=== PATIENT | male | born 1995 | race Caucasian/White ===

== ENCOUNTER 2018-12-11 06:06 | Day surgery (SDC) | payer OTHER ==
[2018-12-10 14:16] VITALS: BMI 23.6
[2018-12-11] MEDS ORDERED: SODIUM CHLORIDE 0.9% P/F 10 ML VIAL IJ ONE (07:09)
[2018-12-11] MEDS ORDERED: BUPIVACAINE LIPOSOME/PF (EXPAREL) 266 MG/20 ML VIAL ONE (07:09)
[2018-12-11] MEDS ORDERED: MIDAZOLAM HCL 2 MG/2 ML SINGLE DOSE VIAL ONE (07:09)
[2018-12-11] MEDS ORDERED: BACITRACIN 15 GM TUBE TOPICAL OINTMENT ONE (07:12)
[2018-12-11] MEDS ORDERED: EPINEPHrine 1:1,000 1 MG/1 ML - 30ML VIAL (INJECTION) ONE (07:12)
--- NOTE | 2018-12-11 07:25 | OP ---
Operative Note - Note: Operative Date: 12/11/18 Pre-Operative Diagnosis: Left ACL tear Operation: Left ACL reconstruction Post-Operative Diagnosis: Same as Pre-op Surgeon: Anmol Denson [employer]acking House Laborer: Trisha Snyder Anesthesia: General Operative Report Dictated: Yes
[2018-12-11] MEDS ORDERED: PROPOFOL 20 ML ONE ×4 (07:31)
[2018-12-11] MEDS ORDERED: LIDOCAINE HCL/PF 2% SDV 5ML VIAL ONE ×2 (07:31→08:09)
[2018-12-11] MEDS ORDERED: SUCCINYLCHOLINE CHLORIDE 200 MG/10 ML VIAL ONE (07:32)
[2018-12-11] MEDS ORDERED: ceFAZolin SODIUM 1 GM VIAL ONE (08:09)
[2018-12-11] MEDS ORDERED: ePHEDrine SULFATE 50 MG/1 ML AMPULE ONE (08:12)
[2018-12-11] MEDS ORDERED: DESFLURANE GAS 240 ML BOTTLE IH ONE (08:38)
[2018-12-11] MEDS ORDERED: ONDANSETRON 4 MG/2 ML VIAL IVPUSH PRN (08:46)
[2018-12-11] MEDS ORDERED: oxyCODONE HCL 5 MG TABLET PO PRN ×2 (08:46)
[2018-12-11] MEDS ORDERED: TRANEXAMIC ACID 1000 MG/10 ML VIAL ONE (08:51)
[2018-12-11] MEDS ORDERED: LACTATED RINGERS SOLUTION 1,000 ML IV SCH (09:00)
[2018-12-11] MEDS ORDERED: DEXAMETHASONE SOD PHOSPHATE 4 MG/1 ML VIAL ONE (09:28)
[2018-12-11 12:01] VITALS: TEMP 98.8
--- NOTE | 2018-12-11 13:15 | OP ---
DATE OF OPERATION: 12/11/2018 PREOPERATIVE DIAGNOSIS: Left knee anterior cruciate ligament rupture. POSTOPERATIVE DIAGNOSIS: Left knee anterior cruciate ligament rupture. PROCEDURE: Left knee arthroscopy with anterior cruciate ligament reconstruction, patellar tendon autograft. SURGEON: Anmol Denson MD HOBBING MACHINE OPERATOR: SLADE Razo, whose skillful assistance was necessary for the safe and timely performance of this procedure. Mrs. Davidson was able to provide limb positioning, retraction, assist in graft harvest and preparation, driving the camera, as well as insertion of orthopedic hardware and graft fixation. ANESTHESIA: Regional plus general. POSTOPERATIVE CONDITION: Stable. COMPLICATIONS: None. IMPLANTS: Arthrex TightRope x1, Arthrex 30 x 8 mm BioComposite Interference screw x1, Arthrex SwiveLock x1. INDICATIONS: This is a 23-year-old gentleman who injured his knee in a twisting injury. He was found to have ACL rupture. Treatment options including nonoperative versus operative measures were reviewed. Graft options were reviewed, and the patient elected patellar tendon autograft reconstruction. Surgical risks were reviewed in detail, including bleeding, infection, neurovascular injury, need for further surgery, postoperative pain and stiffness, failure to heal or persistent instability, graft rupture. We discussed medical risks such as heart attack, stroke, DVT, PE, and . I reviewed at length the rehabilitation protocol and that while the knee generally is better from the surgery, it will never be 100% the same as it was before. I addressed all the patient's questions and concerns. We reviewed the use of perioperative antibiotic and DVT prophylaxis. The patient and his father were both present for consent, consent was signed, he voiced understanding and proceeded with surgery. DESCRIPTION OF PROCEDURE: The patient was brought to the operating room after administration of regional block in the preoperative holding area. The patient was placed onto the operating room table, carefully padding all the bony prominences. The left lower extremity was examined and demonstrated positive Gibson, positive pivot-shift, stable MCL, and stable LCL. The PCL was stable as well. There was trace effusion. There was full range of motion. The limb was then prepped and draped in the usual sterile fashion. A preoperative dose of antibiotics was given, and the usual timeout procedure was performed. The initial step was to harvest the patellar tendon. An incision was planned out over the patellar tendon. This was carried down through skin and through subcutaneous tissue. Bone spreading was used to expose the patellar tendon, splinting the peritenon in line with its fibers. The middle third of the patellar tendon was then marked out, and a 10-mm swath of tendon was incised using the 10 blade. Two bone blocks were now marked out, 20 mm x 10 mm on the patella and 10 mm x 25 mm on the tibia. Utilizing an oscillating saw, the cuts were made. The bone block was then removed from the patella utilizing the osteotome. A 15 blade was used to lyse any remaining attachments to the patellar tendon. This was then repeated on the tibial side. The graft was not obtained and prepared on the back table. The graft was prepared to a size 10. The femoral end was loaded onto a TightRope and the tibial end with FiberWire sutures with 2 drill holes passed. A Tapesuture was passed through the button as well to provide type construct. Concurrently, arthroscope was passed into the knee. The patellofemoral joint was examined demonstrating some mild superficial wear. However, no significant articular lesions were noted. The arthroscope was passed into the notch. Here, the ACL was clearly torn off the lateral wall. Arthroscope was now passed into the medial side. A medial portal was established under spinal needle localization. The medial compartment was now examined. There were no meniscal lesions. There were no articular lesions. The meniscus was probed and found to be stable. Procedure was then repeated on the lateral side. The lateral articular surface was unremarkable. The lateral meniscus demonstrated no tears. This was probed and also found to be stable. The arthroscope was now passed back into the notch. Here, utilizing electrocautery as well as a shaver, the remnant of the ACL was debrided off the femoral notch as well as off the tibial footprint. A femoral drill guide was now inserted onto the anatomic origin of the ACL at the lateral bifurcate ridge. A small incision was made distally in the thigh, and blunt almond grinder was used to insert the trocar down to the level of the bone. FlipCutter was now drilled into the knee. FlipCutter placement was verified and was satisfactory. The FlipCutter was then deployed after malleting the trocar, and a 10 mm x 27 mm socket was created. The FlipCutter was then removed, and a passing suture was placed. The tibial drill guide was now inserted. Here, a small incision was also used in the tibia, and blunt almond grinder was used to insert the trocar. The FlipCutter was not drilled into the knee. Placement was verified and was satisfactory. The FlipCutter was then deployed, and a 10 mm x 50 mm socket was created on the tibial side. The FlipCutter was drilled out to through the cortex here. In order to smooth the cortex, a 10 mm reamer was then inserted from the outside in order to allow for easy graft passage. The passing suture was then retrieved out the tibial side. The passing suture was then used to pass the 2 sutures from the TightRope through the femoral socket. They were retrieved out. Under direct visualization, the femoral button was seen to pass through the socket and then was seated firmly onto the femoral cortex. The graft was now drawn up into the socket, ensuring that the entire bone block was placed within. The knee was now cycled. The TightRope was once again toggled, but no further excursion was noted. The guidepin for the tibial side was now inserted and visualized anterior to the graft arthroscopically. A snap was placed onto this to maintain it in place. The tibial tunnel was tapped, and a size 8 screw was chosen. The screw was inserted, and good purchase was achieved. In order to provide backup fixation, sutures were then retrieved, SwiveLock anchor was drilled and inserted, further securing down the sutures from the graft. At this point, Gibson maneuver was performed. The knee was found to be stable. Full range of motion was obtained. The excess fluid was withdrawn from the joint. The deep tissue was approximated using 0 Vicryl. The bone graft left over from the tibial side was placed into the patellar defect. This was then sewn closed using 0 Vicryl. The subcutaneous tissue was approximated using 3-0 Vicryl. The skin was closed using 4-0 nylon. Sterile dressings were placed. The patient was placed into a knee immobilizer. He was transferred to the recovery room in stable condition. Amna [id number]
[2018-12-11 13:37] VITALS: BP 124/75; PULSE 82
== END 2018-12-11 12:30 | disposition home or self-care (01) ==
LOC: FASU 06:06
PROVIDERS: ATTEND Orthopaedic Surgery Sports Medicine
PROC: 0MRP47Z Replacement of Left Knee Bursa and Ligament with Autologous Tissue Substitute, Percutaneous Endoscopic Approach (ICD-10-PCS; principal; 2018-12-11 08:20)
DX: S83.512A Sprain of anterior cruciate ligament of left knee, initial encounter (principal); X58.XXXA Exposure to other specified factors, initial encounter; Y93.9 Activity, unspecified; Y92.9 Unspecified place or not applicable
CPT/HCPCS: 94760

== ENCOUNTER 2020-12-20 21:34 | Emergency (ER) | payer OTHER ==
[2020-12-20 21:43] VITALS: BP 137/95; PULSE 81; TEMP 99; BMI 25.1
[2020-12-20] MEDS ORDERED: LIDOCAINE HCL 2% (50ML VIAL) INF ONE (22:25)
[2020-12-20] MEDS ORDERED: LIDOCAINE HCL 2% (20ML MULTI-DOSE VIAL) ONE (22:26)
== END 2020-12-20 23:28 | disposition home or self-care (01) ==
LOC: FER 21:34
PROC: 0HQGXZZ Repair Left Hand Skin, External Approach (ICD-10-PCS; principal; 2020-12-20)
DX: S61.012A Laceration without foreign body of left thumb without damage to nail, initial encounter (principal)
CPT/HCPCS: 73130-TC-LT-FY; 99283-25

== ENCOUNTER 2020-12-31 10:56 | Emergency (ER) | payer OTHER, BC ==
[2020-12-31 11:16] VITALS: BP 128/87; PULSE 60; TEMP 99; BMI 23.6
== END 2020-12-31 11:18 | disposition home or self-care (01) ==
LOC: FER 10:56
DX: Z48.02 Encounter for removal of sutures (principal)
CPT/HCPCS: 99281-25